=== PATIENT | male | born 1980 | race Caucasian/White ===

== ENCOUNTER → 2023-03-22 | Outpatient (CLI) | payer BC ==
[~2023-03-22] MED LIST: CEPH500 PO; ESOM20 PO; FAMO20 PO; HYDACE5 PO; HYOS.125 SL; OMEP20ER PO; OMEP40CA12 PO; ONDA4ODT MM; ONDA8ODT MM; OXYACE5T PO; PROC10 PO; PROC25S PR; PROM25 PO; Percocet 5-3251 EACH PO; RANI150; SUCR1 PO
[2023-03-25 10:57] LABS: RPR SCREEN with Reflex Reactive (Nonreactive)
== END | disposition home or self-care (01) ==
LOC: LAB SHORT 18:04 → LAB 18:04
PROVIDERS: Student in an Organized Health Care Education/Training Program
DX: Z20.2 Contact with and (suspected) exposure to infections with a predominantly sexual mode of transmission (principal)
CPT/HCPCS: 86592; 86593